=== PATIENT | male | born 1945 | race Caucasian/White ===

== ENCOUNTER → 2019-01-02 08:51 | Outpatient (CLI) | payer MEDICARE, BC ==
--- NOTE | 2019-01-03 12:01 | EC ---
PATIENT:MALGORZATAED DATE OF SERVICE: 01/02/19 SEX: M MEDICAL RECORD: [id number] DATE OF : 49 LOCATION:[facility] AGE OF PATIENT: 73 ADMISSION DATE: 01/02/19 REFERRING PHYSICIAN: INTERPRETING PHYSICIAN: FIORELLA SUNSHINE MD ECHOCARDIOGRAM REPORT ECHO CHARGES 4 ECHO COMPLETE Date: 01/02/19 CLINICAL DIAGNOSIS: A-FIB H/O HTN ECHOCARDIOGRAPHIC MEASUREMENTS (adult normal given) AC root (d.<3.7cm) 3.5 cm LV Septum d (<1.2 cm> 1.4 cm Valve Excursion 2.4 cm LV Septum (systole) 2.1 cm Left Atria (s.<4.0cm> 4.7 cm LVPW d(<1.2cm) 1.4 cm RV (d.<2.3cm) 3.3 cm LVPW (sytole) 2.1 cm LV diastole(<5.6CM) 5.7 cm MV E-F(>70mm/sec) cm LV systole 3.2 cm LVOT Diameter 2.2 cm MV exc.(>10mm) cm Est.ejection fraction (50-75%) % DOPPLER: LVIT cm/sec A 39.0 cm/sec E 56.0 cm/sec LA cm/sec RVSP 20.0 mmHg LVOT 84.0 cm/sec AOP1/2T m/s Asc. Ao 119 cm/sec RVOT 46.0 cm/sec RA cm/sec PA 70.0 cm/sec AV Gradient Peak 5.7 mmHg AV Mean 2.9 mmHg AV Area 3.1 cm MV Gradient Peak 2.1 mmHg MV Mean 0.54 mmHg MV Area cm COMMENTS: OP - HC Straight Cutter: 1 JAVED KANDICE Resident Care Aide: 3 Dr. Jim TAPE# PACS Pericardial Effusion N DATE OF SERVICE: Adequate 2D, color-flow and spectral Doppler, and M-mode. LVH is present. LV internal dimensions are normal. Wall motion is normal. EF is greater than or equal to 55%. Aortic valve is sclerosed without stenosis by Doppler interrogation. Left atrium is dilated at 4.7 cm. Mitral valve shows no prolapse. Trace MR. Right-sided chambers are grossly normal. Trace TR. TRANSINT:[id number] Voice Confirmation ID: [id number] DOCUMENT ID: [id number] ECHOCARDIOGRAM REPORT [id number] FRANCES MCGARRY GREGORY A MD at 1201 CC: [id number] DICTATION DATE: 01/02/19 161 [employer] AGENT: 01/02/191930 DEP CLI 01/02/[address] [facility] [address] [id number]
== END | disposition home or self-care (01) ==
LOC: D.HCCECHO 08:51
PROVIDERS: ATTEND Internal Medicine Interventional Cardiology
DX: I10 Essential (primary) hypertension (principal)